=== PATIENT | male | born 1965 | race Caucasian/White ===

== ENCOUNTER 2022-12-04 14:17 | Outpatient (CLI) | payer BC ==
[~2022-12-04 14:17] MED LIST: Magnevist 469MG/ML 20 ML VIAL ONE
== END 2022-12-04 14:18 | disposition home or self-care (01) ==
LOC: CSHMRI 14:17
PROVIDERS: ATTEND Urology
DX: N40.2 Nodular prostate without lower urinary tract symptoms (principal)
CPT/HCPCS: 72197; A9579